=== PATIENT | male | born 1960 | race Asian ===

== ENCOUNTER 2019-08-02 20:43 | Emergency (ER) | payer OTHER ==
[~2019-08-02] VITALS: Ht 172.7 cm; Wt 65.8 kg
[2019-08-02 21:13] LABS: PLATELET COUNT 229 K/uL (142-355)
[2019-08-02 21:27] LABS: POTASSIUM 4.3 mmol/L (3.6-5.2)
[2019-08-02 22:25] VITALS: BP 113/64; TEMP 98
[2019-08-03] MEDS ORDERED: TYLENOL325 MG PO (00:41)
[2019-08-03] MEDS ORDERED: ASCORBIC ACD500 MG PO (00:42)
[2019-08-03] MEDS ORDERED: ASPIRIN 81 LOW81 MG PO (00:42)
[2019-08-03] MEDS ORDERED: ATOR20TA2 PO (00:43)
[2019-08-03] MEDS ORDERED: CALCITRIOL1 MCG/M1 PO (00:44)
[2019-08-03] MEDS ORDERED: DIVA500T2 PO (00:45)
[2019-08-03] MEDS ORDERED: HYDR25TA57 PO (00:46)
[2019-08-03] MEDS ORDERED: IPRATROPIUM/ INH (00:49)
[2019-08-03] MEDS ORDERED: LEVE500T5 PO (00:50)
[2019-08-03] MEDS ORDERED: LOSA50TA PO (00:50)
[2019-08-03] MEDS ORDERED: METO25TA4 PO (00:51)
[2019-08-03] MEDS ORDERED: [UNRECOGNIZED DRUG - OTHER] PO (00:52)
[2019-08-03] MEDS ORDERED: ZOLOFT25 MG PO (00:53)
[2019-08-03] MEDS ORDERED: SEROQUEL50 MG PO (00:53)
== END 2019-08-02 22:25 | disposition still patient (30) ==
LOC: ED 20:43
PROVIDERS: Hospitalist
DX: F25.9 Schizoaffective disorder, unspecified (principal); F03.91 Unspecified dementia, unspecified severity, with behavioral disturbance; Z04.6 Encounter for general psychiatric examination, requested by authority
CPT/HCPCS: 80053; 85027; 93005; 99283